=== PATIENT | female | born 1985 | race Two or more races ===

== ENCOUNTER 2018-05-10 17:52 | Emergency (ER) | payer MEDICAID, OTHER ==
[~2018-05-10] VITALS: Ht 162.6 cm; Wt 84.4 kg
[2018-05-10 18:20] VITALS: BP 128/81
[2018-05-10] MEDS: KETOROLAC TROMETH 60MG/2ML VIAL IM ONE (21:15)
[2018-05-10] MEDS: methylPREDNISolone SOD SUCC 125 MG/2 ML VL IM ONE (21:15)
== END 2018-05-10 22:30 | disposition home or self-care (01) ==
LOC: ER 17:58
DX: M54.31 Sciatica, right side (principal); Z88.0 Allergy status to penicillin
CPT/HCPCS: 72100; 96372; 99284; J1885; J2930